=== PATIENT | female | born 1970 | race Caucasian/White ===

== ENCOUNTER 2025-02-25 13:20 | Emergency (ER) | payer BC ==
[2025-02-25 14:01] LABS: BASOPHILS ABSOLUTE AUTO 0.04 K/uL (0.00-0.10); BASOPHILS PERCENT AUTO 0.4 % (0.1-1.3); HEMATOCRIT 40.5 % (34.3-46.0); HEMOGLOBIN 14.3 g/dL (11.2-15.5); IMMATURE GRAN ABSOLUTE AUTO 0.03 K/uL (0.00-0.23); IMMATURE GRAN PERCENT AUTO 0.3 % (0.0-0.7); LYMPHOCYTES ABSOLUTE AUTO 2.41 K/uL (0.8-3.3); LYMPHOCYTES PERCENT AUTO 22.7 % (11.4-47.7); MEAN CORPUSCULAR HEMOGLOBIN 29.5 pg (31.6-35.5); MEAN CORPUSCULAR HGB CONC 35.3 g/dL (31.6-35.5); MEAN CORPUSCULAR VOLUME 83.7 fL (81.4-99.0); MONOCYTES ABSOLUTE AUTO 0.85 K/uL (0.20-0.90); NEUTROPHILS ABSOLUTE AUTO 7.31 K/uL (1.0-7.6); NEUTROPHILS PERCENT AUTO 68.6 % (40.0-78.1); PLATELET COUNT,PLT 247 K/uL (130-375); RED BLOOD CELL COUNT 4.84 M/uL (3.77-5.24); WHITE BLOOD CELL COUNT,WBC 10.6 K/uL (3.2-11.0)
[2025-02-25 14:16] LABS: INR 1.1; PROTHROMBIN TIME 10.9 sec (9.2-10.6)
[2025-02-25 14:24] LABS: A/G RATIO 0.8 (1.2-2.2); ALANINE AMINOTRANSFERASE,ALT 23 U/L (12-78); ALBUMIN 3.5 g/dL (3.4-5.0); ALKALINE PHOSPHATASE 68 U/L (46-116); ANION GAP 12.9 mmol/L (5.0-14.0); ASPARTATE AMNIOTRANSFERASE,AST 15 U/L (15-37); BILIRUBIN TOTAL 1.8 mg/dL (0.2-1.0); BLOOD UREA NITROGEN,BUN 17 mg/dL (7-18); CALCIUM 9.4 mg/dL (8.5-10.1); CARBON DIOXIDE,CO2 24 mmol/L (21-32); CHLORIDE,CL 93 mmol/L (100-108); CREATININE 0.7 mg/dL (0.6-1.0); ESTIMATED GFR 102 mL/min (>60); GLUCOSE RANDOM 133 mg/dL (74-106); POTASSIUM,K 3.9 mmol/L (3.6-5.2); PROTEIN TOTAL,TP 8.1 g/dL (6.4-8.2); SODIUM,NA 126 mmol/L (140-148); TROPONIN I HIGH SENSITIVITY 13.4 pg/mL (<=60.3)
[2025-02-25] MEDS: Sodium Chloride 0.9% 100 ML IV SCH (14:31)
[2025-02-25] MEDS: Iopamidol 755 Mg/ML 100 ML Bottle IV SCH (14:31)
[2025-02-25] MEDS: Sodium Chloride 0.9% 10 ML Syringe FLUSH ONE (14:31)
[2025-02-25] MEDS: Sodium Chloride 0.9% 1,000 ML IV ONE ×2 (15:04→16:47)
[2025-02-25 15:35] LABS: BILIRUBIN,URINE NEGATIVE (NEGATIVE); COLOR,URINE YELLOW (YELLOW); GLUCOSE,URINE NEGATIVE (NEGATIVE); KETONES,URINE NEGATIVE (NEGATIVE); LEUKOCYTE ESTERASE,URINE TRACE (NEGATIVE); NITRITE,URINE POSITIVE (NEGATIVE); OCCULT BLOOD,URINE TRACE-INTACT (NEGATIVE); PROTEIN,URINE NEGATIVE (NEGATIVE); UROBILINOGEN,URINE 0.2 EU/dL (0.2-1.0)
[2025-02-25 15:43] LABS: AMORPHOUS SEDIMENT,URINE NOT SEEN; APPEARANCE,URINE SLIGHTLY CLOUDY (CLEAR); BACTERIA,URINE MANY; EPITHELIAL CELLS,URINE FEW; MUCUS,URINE RARE; RBC,URINE 0-5 (0-5); WBC,URINE 20-30 (0-5)
[2025-02-25 15:43] LABS: AMPHETAMINES SCREEN, URINE NEGATIVE (NEGATIVE); BARBITURATE SCREEN,URINE NEGATIVE (NEGATIVE); BENZODIAZEPINES SCREEN,URINE NEGATIVE (NEGATIVE); METHADONE SCREEN, URINE NEGATIVE (NEGATIVE); METHAMPHETAMINES SCREEN, URINE NEGATIVE (NEGATIVE); OXYCODONE SCREEN,URINE NEGATIVE (NEGATIVE); PROPOXYPHENE SCREEN,URINE NEGATIVE (NEGATIVE); THC SCREEN,URINE 50 NG/ML NEGATIVE (NEGATIVE)
[2025-02-25] MEDS: Acetaminophen 1,000 MG in Premix Bag 1 BAG IV ONE (16:09)
[2025-02-25] MEDS: cefTRIAXone 1 GM in Sodium Chloride 0.9% 50 ML IV ONE (16:45)
== END 2025-02-25 19:30 ==
LOC: JP.ED 13:20
DX: R41.82 Altered mental status, unspecified (principal); N39.0 Urinary tract infection, site not specified
CPT/HCPCS: 36415; 70450; 70496; 70498; 71045; 80053; 80305; 80307; 81001; 82140; 83605; 84484; 85025; 85610; 87040; 87086; 87088; 87186; 87426; 93005; 96361; 96365; 96375; 99285; J0131; J0696; J7030; Q9967